=== PATIENT | female | born 1960 | race Caucasian/White ===

== ENCOUNTER → 2016-05-09 | Outpatient (CLI) | payer MEDICARE, MEDICAID ==
[~2016-05-09] MED LIST: ALBUTEROL0.09 MG/A2 IH; ANAPROX DS550 MG PO; ASACOL HD800 M1 PO; AZULFIDINE500 MG PO; CARDIZEM120 MG PO; CELEXA20 MG PO; CELEXA40 MG PO; CIPROFLOXACIN500 MG PO; CYMBALTA30 MG PO; FENOFIBRATE MI134 MG PO; FLAGYL500 MG PO; HYDROCODONE BIT1 T11 PO; IRON TABLETS325 MG PO; KLONOPIN WAFE0.25 MG PO; KLONOPIN0.5 MG PO; LAMICTAL200 MG PO; LISINOPRIL HCTZ1 TA1 PO; LORATADINE10 MG PO; MEDROL DOSEPAK4 MG PO; NORCO 325 MG-101 TAB PO; NORTRIPTYLINE H10 M1 PO; NORVASC5 MG PO; PRILOSEC40 MG PO; PROTONIX40 MG PO; PROVENTIL0.09 MG/A1 INH; ROBAXIN750 MG PO; SILVADENE,SSD C50 GM PO; TRAMADOL HCL50 MG PO; TYLENOL WITH CO1 TA1 PO; VICODIN 5/500 505 MG PO; VISTARIL25 M1 PO; VISTARIL25 MG PO; VISTARIL50 MG PO; VITAMIN D50000 I2 PO; WELLBUTRIN SR150 MG PO; WELLBUTRIN SR200 MG PO; ZANTAC 150150 MG PO
[2016-05-09 13:03] LABS: BILIRUBIN NEGATIVE (NEGATIVE); BLOOD NEGATIVE (NEGATIVE); CLARITY SL CLOUDY (CLEAR); COLOR YELLOW (YELLOW); GLUCOSE NEGATIVE (NEGATIVE); KETONE NEGATIVE (NEGATIVE); LEUKO ESTERASE TRACE (NEGATIVE); NITRITE NEGATIVE (NEGATIVE); PROTEIN NEGATIVE (NEGATIVE); SPECIFIC GRAVITY 1.015 (1.005-1.030)
[2016-05-09 13:04] LABS: URINE TP/CRE RATIO 0.1 (<0.21)
[2016-05-09 13:08] LABS: BASO # 0.1 10*3/uL (0.0-0.1); EOS # 0.6 10*3/uL (0.0-0.4); EOS % 6.1 % (1.0-4.0); HEMATOCRIT 41.1 % (37.0-47.0); HEMOGLOBIN 13.1 g/dl (12.0-16.0); LYMPH # 2.2 10*3/uL (1.3-4.4); LYMPH % 23.5 % (27.0-41.0); MEAN CELL VOLUME 85.3 fl (81.0-99.0); MEAN CORPUSCULAR HGB 27.2 pg (27.0-31.0); MEAN CORPUSCULAR HGB CONC 31.9 g/dl (33.0-37.0); MEAN PLATELET VOLUME 10.1 fl (9.6-12.3); MONO # 0.5 10*3/uL (0.1-1.0); MONO % 5.8 % (3.0-9.0); NEUT # 5.9 10*3/uL (2.3-7.9); NEUT % 63.4 % (47.0-73.0); PLATELET COUNT AUTOMATED 378 10*3/uL (130-400); RED BLOOD COUNT 4.82 10*6/uL (4.10-5.10); RED CELL DISTRI WIDTH 14.2 % (0-14.5); WHITE BLOOD COUNT 9.3 10*3/uL (4.8-10.8)
[2016-05-09 13:41] LABS: ALBUMIN 3.7 gm/dl (3.1-4.5); MAGNESIUM 2.1 mg/dL (1.5-2.1); PHOSPHOROUS 2.6 mg/dL (2.5-4.9); POTASSIUM 3.9 mmol/L (3.5-5.1)
[2016-05-09 13:56] LABS: PTH INTACT 68.6 pg/mL (14.0-72.0); VITAMIN D, 25-HYDROXY 15.7 ng/mL (30-100)
[2016-05-09 14:04] LABS: BACTERIA TRACE
[2016-05-09 14:05] LABS: URINE REFLEX COMMENT YES (NO)
== END | disposition home or self-care (01) ==
LOC: LAB 12:35
PROVIDERS: Internal Medicine Nephrology
DX: N18.3 Chronic kidney disease, stage 3 (moderate) (principal); N25.81 Secondary hyperparathyroidism of renal origin

== ENCOUNTER → 2016-05-20 | Outpatient (CLI) | payer MEDICARE, MEDICAID | LOC: RAD 12:20 | DX: M54.6 Pain in thoracic spine (principal); M54.9 Dorsalgia, unspecified; M25.78 Osteophyte, vertebrae ==

== ENCOUNTER → 2016-09-15 | Outpatient (CLI) | payer MEDICARE, MEDICAID ==
--- NOTE | ~2016-09-15 | EKG ---
[place], [place] ELECTROCARDIOGRAM REPORT NAME: BÁRBARA LEÓN UNIT #: [id number] ROOM: DOCTOR: HALEIGH VALDEZ MD BIRTHDATE: [birth year] DOS: 09/15/2016 TIME: 11:16:37. EKG normal sinus rhythm, normal axis, normal intervals with nonspecific ST-T changes. HALEIGH VALDEZ MD CM:EKGRPT:ELECTROCARDIOGRAM REPORT [id number] HALEIGH VALDEZ MD
[2016-09-15 11:29] LABS: BASO # 0.1 10*3/uL (0.0-0.1); BASO % 0.9 % (0.0-1.0); EOS # 0.3 10*3/uL (0.0-0.4); EOS % 3.8 % (1.0-4.0); HEMATOCRIT 39.9 % (37.0-47.0); LYMPH # 2.2 10*3/uL (1.3-4.4); LYMPH % 33.4 % (27.0-41.0); MEAN CELL VOLUME 87.9 fl (81.0-99.0); MEAN CORPUSCULAR HGB 28.6 pg (27.0-31.0); MEAN CORPUSCULAR HGB CONC 32.6 g/dl (33.0-37.0); MEAN PLATELET VOLUME 10.4 fl (9.6-12.3); MONO # 0.5 10*3/uL (0.1-1.0); MONO % 7.1 % (3.0-9.0); NEUT # 3.6 10*3/uL (2.3-7.9); NEUT % 54.5 % (47.0-73.0); PLATELET COUNT AUTOMATED 242 10*3/uL (130-400); RED BLOOD COUNT 4.54 10*6/uL (4.10-5.10); RED CELL DISTRI WIDTH 13.6 % (0-14.5); WHITE BLOOD COUNT 6.7 10*3/uL (4.8-10.8)
[2016-09-15 11:55] LABS: ALBUMIN 3.5 gm/dl (3.1-4.5); PHOSPHOROUS 2.2 mg/dL (2.5-4.9); POTASSIUM 3.7 mmol/L (3.5-5.1)
== END ==
LOC: LAB 10:59
PROVIDERS: Nurse Practitioner Family
DX: I12.9 Hypertensive chronic kidney disease with stage 1 through stage 4 chronic kidney disease, or unspecified chronic kidney disease (principal); N18.3 Chronic kidney disease, stage 3 (moderate); E55.9 Vitamin D deficiency, unspecified

== ENCOUNTER 2016-10-18 23:18 | Emergency (ER) | payer MEDICARE, MEDICAID ==
[~2016-10-18] VITALS: Ht 162.5 cm; Wt 89.8 kg
[2016-10-19] MEDS ORDERED: HYDROCODONE BIT1 T11 PO (00:45)
== END 2016-10-19 01:15 | disposition home or self-care (01) ==
LOC: ED 23:18
DX: S52.125A Nondisplaced fracture of head of left radius, initial encounter for closed fracture (principal); Z79.899 Other long term (current) drug therapy; W18.39XA Other fall on same level, initial encounter; Y93.89 Activity, other specified; Y92.89 Other specified places as the place of occurrence of the external cause; Y99.8 Other external cause status

== ENCOUNTER → 2016-10-21 | Outpatient (CLI) | payer MEDICARE, MEDICAID | END | disposition home or self-care (01) | LOC: RAD 17:18 | DX: R07.89 Other chest pain (principal); Z91.81 History of falling ==

== ENCOUNTER → 2017-03-13 | Day surgery (SDC) | payer MEDICARE, MEDICAID ==
[~2017-03-13] VITALS: Ht 162.5 cm; Wt 98.0 kg
[~2017-03-13] MED LIST changes: +CLONAZEPAM0.5 M2 PO; +COLACE 2-IN-11 EACH PO; +GOOD NEIGHBOR150 MG PO; +LISINOPRIL5 MG PO; +PROVENTIL HFA6.7 GM INH; +QUETIAPINE FUM200 M3 PO; +ROSUVASTATIN CA40 MG PO; +TOPIRAMATE25 M3 PO; +VIIBRYD20 M1 PO
[2017-03-13 07:16] VITALS: BP 131/79
[2017-03-13 08:18] VITALS: BP 97/63
[2017-03-13 08:33] VITALS: BP 113/65
[2017-03-13 08:48] VITALS: BP 104/64
== END | disposition home or self-care (01) ==
LOC: SDC 03:54
DX: K57.30 Diverticulosis of large intestine without perforation or abscess without bleeding (principal); K64.8 Other hemorrhoids; K21.9 Gastro-esophageal reflux disease without esophagitis; I10 Essential (primary) hypertension; F32.9 Major depressive disorder, single episode, unspecified; Z98.890 Other specified postprocedural states; Z82.49 Family history of ischemic heart disease and other diseases of the circulatory system; Z79.899 Other long term (current) drug therapy; E66.01 Morbid (severe) obesity due to excess calories; Z68.41 Body mass index [BMI] 40.0-44.9, adult

== ENCOUNTER → 2017-03-21 | Outpatient (CLI) | payer MEDICARE, MEDICAID ==
[2017-03-21 11:15] LABS: BASO # 0.1 10*3/uL (0.0-0.1); BASO % 0.9 % (0.0-1.0); EOS # 0.4 10*3/uL (0.0-0.4); EOS % 5.4 % (1.0-4.0); HEMATOCRIT 39.3 % (37.0-47.0); HEMOGLOBIN 12.5 g/dl (12.0-16.0); LYMPH # 2.3 10*3/uL (1.3-4.4); LYMPH % 33.3 % (27.0-41.0); MEAN CELL VOLUME 85.6 fl (81.0-99.0); MEAN CORPUSCULAR HGB 27.2 pg (27.0-31.0); MEAN CORPUSCULAR HGB CONC 31.8 g/dl (33.0-37.0); MEAN PLATELET VOLUME 10.6 fl (9.6-12.3); MONO # 0.5 10*3/uL (0.1-1.0); MONO % 7.6 % (3.0-9.0); NEUT # 3.6 10*3/uL (2.3-7.9); NEUT % 52.5 % (47.0-73.0); PLATELET COUNT AUTOMATED 275 10*3/uL (130-400); RED BLOOD COUNT 4.59 10*6/uL (4.10-5.10); RED CELL DISTRI WIDTH 13.6 % (0-14.5); WHITE BLOOD COUNT 6.8 10*3/uL (4.8-10.8)
[2017-03-21 11:35] LABS: ALBUMIN 3.3 gm/dl (3.1-4.5); ALKALINE PHOSPHATASE 87 U/L (45-117); BILIRUBIN, DIRECT < 0.1 mg/dL (0.0-0.2); FREE T4 0.78 ng/dl (0.76-1.46); SGOT/AST 19 IU/L (3-35); SGPT/ALT 22 U/L (12-78); TOTAL PROTEIN 7.5 gm/dL (6.4-8.2)
[2017-03-21 11:41] LABS: THYROID STIM HORMONE (HS) 0.705 uIU/ml (0.358-4.75)
[2017-03-22 07:12] LABS: THYROID PEROXIDASE (TPO) AB 16 IU/mL (0-34)
[2017-03-22 14:07] LABS: THYROGLOBULIN ANTIBODY <1.0 IU/mL (0.0-0.9)
== END | disposition home or self-care (01) ==
LOC: LAB 10:33
PROVIDERS: Internal Medicine
DX: R94.6 Abnormal results of thyroid function studies (principal)

== ENCOUNTER → 2017-03-29 | Outpatient (CLI) | payer MEDICARE, MEDICAID | END | disposition home or self-care (01) | LOC: MAMMO 03-10 15:30 → SDC 03-10 15:30 → MAMMO 13:45 | DX: Z12.31 Encounter for screening mammogram for malignant neoplasm of breast (principal) ==

== ENCOUNTER → 2017-04-18 | Day surgery (SDC) | payer MEDICARE, MEDICAID ==
[~2017-04-18] VITALS: Ht 162.5 cm
[~2017-04-18] MED LIST changes: +AMLODIPINE BESYL5 MG PO; +NEURONTIN100 MG PO; +OMEPRAZOLE40 MG PO
[2017-04-18 07:28] VITALS: BP 120/81
[2017-04-18 08:15] VITALS: BP 103/70
[2017-04-18 08:30] VITALS: BP 109/70
[2017-04-18 08:45] VITALS: BP 159/93
== END | disposition home or self-care (01) ==
LOC: SDC 04-14 08:00
DX: K29.70 Gastritis, unspecified, without bleeding (principal); K21.0 Gastro-esophageal reflux disease with esophagitis; I10 Essential (primary) hypertension; F32.9 Major depressive disorder, single episode, unspecified; Z98.51 Tubal ligation status; Z82.49 Family history of ischemic heart disease and other diseases of the circulatory system

== ENCOUNTER → 2017-05-30 | Outpatient (CLI) | payer MEDICARE, MEDICAID ==
--- NOTE | ~2017-05-30 | EKG ---
[place], [place] ELECTROCARDIOGRAM REPORT NAME: BÁRBARA LEÓN UNIT #: [id number] ROOM: DOCTOR: REGULO TEIXEIRA MD BIRTHDATE: [birth year] DOS: 05/30/2017 TIME: 1142 hours. FINDINGS: 1. Normal sinus rhythm at 85 beats per minute. 2. The tracing is normal. 3. No previous tracing is available for comparison. REGULO TEIXEIRA MD CM:EKGRPT:ELECTROCARDIOGRAM REPORT [id number] 1829 REGULO TEIXEIRA MD
== END | disposition home or self-care (01) ==
LOC: RAD 11:35
DX: R06.02 Shortness of breath (principal); R05 Cough; I10 Essential (primary) hypertension

== ENCOUNTER → 2017-09-07 | Outpatient (CLI) | payer MEDICARE, MEDICAID ==
[2017-09-07 13:55] LABS: BILIRUBIN NEGATIVE (NEGATIVE); BLOOD NEGATIVE (NEGATIVE); CLARITY CLEAR (CLEAR); COLOR YELLOW (YELLOW); GLUCOSE NEGATIVE (NEGATIVE); KETONE TRACE (NEGATIVE); LEUKO ESTERASE NEGATIVE (NEGATIVE); NITRITE NEGATIVE (NEGATIVE); SPECIFIC GRAVITY >= 1.030 (1.005-1.030)
[2017-09-07 14:03] LABS: BASO # 0.1 10*3/uL (0.0-0.1); BASO % 1.1 % (0.0-1.0); EOS # 1.2 10*3/uL (0.0-0.4); EOS % 16.2 % (1.0-4.0); HEMOGLOBIN 13.5 g/dl (12.0-16.0); LYMPH # 1.8 10*3/uL (1.3-4.4); LYMPH % 24.9 % (27.0-41.0); MEAN CELL VOLUME 86.4 fl (81.0-99.0); MEAN CORPUSCULAR HGB 27.8 pg (27.0-31.0); MEAN CORPUSCULAR HGB CONC 32.1 g/dl (33.0-37.0); MEAN PLATELET VOLUME 10.3 fl (9.6-12.3); MONO # 0.6 10*3/uL (0.1-1.0); MONO % 7.8 % (3.0-9.0); NEUT # 3.6 10*3/uL (2.3-7.9); NEUT % 49.9 % (47.0-73.0); PLATELET COUNT AUTOMATED 291 10*3/uL (130-400); RED BLOOD COUNT 4.86 10*6/uL (4.10-5.10); WHITE BLOOD COUNT 7.3 10*3/uL (4.8-10.8)
[2017-09-07 14:10] LABS: BACTERIA 1+; MUCOUS 2+
[2017-09-07 14:13] LABS: EPITHELIAL CELLS 21-30
[2017-09-07 14:15] LABS: ALBUMIN 3.6 gm/dl (3.1-4.5); CREATININE 1.35 mg/dL (0.55-1.02); PHOSPHOROUS 2.7 mg/dL (2.5-4.9); POTASSIUM 3.5 mmol/L (3.5-5.1)
[2017-09-07 14:29] LABS: PTH INTACT 62.4 pg/mL (14.0-72.0); VITAMIN D, 25-HYDROXY 20.3 ng/mL (30-100)
== END | disposition home or self-care (01) ==
LOC: LAB 13:19
PROVIDERS: Internal Medicine Nephrology
DX: N25.81 Secondary hyperparathyroidism of renal origin (principal); N18.3 Chronic kidney disease, stage 3 (moderate); E55.9 Vitamin D deficiency, unspecified

== ENCOUNTER → 2017-10-09 | Day surgery (SDC) | payer MEDICARE, MEDICAID ==
[~2017-10-09] VITALS: Ht 167.6 cm; Wt 101.2 kg
[2017-10-09 08:00] VITALS: BP 120/52
[2017-10-09 10:55] VITALS: BP 130/66
[2017-10-09 11:10] VITALS: BP 127/67
[2017-10-09 11:20] VITALS: BP 126/65
== END | disposition home or self-care (01) ==
LOC: SDC 10-03 11:00
DX: K52.9 Noninfective gastroenteritis and colitis, unspecified (principal); K62.89 Other specified diseases of anus and rectum; K57.30 Diverticulosis of large intestine without perforation or abscess without bleeding; K21.9 Gastro-esophageal reflux disease without esophagitis; I10 Essential (primary) hypertension; E11.9 Type 2 diabetes mellitus without complications; F32.9 Major depressive disorder, single episode, unspecified; F41.9 Anxiety disorder, unspecified; D64.9 Anemia, unspecified; J45.909 Unspecified asthma, uncomplicated; Z90.49 Acquired absence of other specified parts of digestive tract; Z98.51 Tubal ligation status; Z98.890 Other specified postprocedural states; Z82.49 Family history of ischemic heart disease and other diseases of the circulatory system; Z79.899 Other long term (current) drug therapy

== ENCOUNTER → 2017-11-15 | Outpatient (CLI) | payer MEDICARE, MEDICAID | END | disposition home or self-care (01) | LOC: RAD 13:15 | DX: R06.2 Wheezing (principal); R05 Cough ==

== ENCOUNTER → 2018-01-11 | Outpatient (CLI) | payer MEDICARE, MEDICAID | END | disposition home or self-care (01) | LOC: LAB 09:34 | DX: R53.83 Other fatigue (principal); N18.9 Chronic kidney disease, unspecified ==

== ENCOUNTER → 2018-03-27 | Day surgery (SDC) | payer MEDICARE, MEDICAID ==
[~2018-03-27] VITALS: Ht 167.6 cm; Wt 99.8 kg
[2018-03-27 07:28] VITALS: BP 142/100
[2018-03-27 08:50] VITALS: BP 106/64
[2018-03-27 09:05] VITALS: BP 104/68
[2018-03-27 09:20] VITALS: BP 114/66
== END | disposition home or self-care (01) ==
LOC: SDC 03-23 12:30
DX: K51.90 Ulcerative colitis, unspecified, without complications (principal); K57.30 Diverticulosis of large intestine without perforation or abscess without bleeding; K64.8 Other hemorrhoids; I10 Essential (primary) hypertension; J45.909 Unspecified asthma, uncomplicated; K21.9 Gastro-esophageal reflux disease without esophagitis; F32.9 Major depressive disorder, single episode, unspecified; Z98.890 Other specified postprocedural states; Z79.899 Other long term (current) drug therapy

== ENCOUNTER → 2018-04-03 | Outpatient (CLI) | payer MEDICARE, MEDICAID | END | disposition home or self-care (01) | LOC: MAMMO 16:11 | DX: Z12.31 Encounter for screening mammogram for malignant neoplasm of breast (principal) ==

== ENCOUNTER → 2018-04-05 | Outpatient (CLI) | payer MEDICARE, MEDICAID ==
[2018-04-05 11:33] LABS: BILIRUBIN NEGATIVE (NEGATIVE); BLOOD NEGATIVE (NEGATIVE); CLARITY SL CLOUDY (CLEAR); COLOR YELLOW (YELLOW); GLUCOSE NEGATIVE (NEGATIVE); KETONE NEGATIVE (NEGATIVE); LEUKO ESTERASE TRACE (NEGATIVE); NITRITE NEGATIVE (NEGATIVE); SPECIFIC GRAVITY 1.015 (1.005-1.030)
[2018-04-05 11:52] LABS: BACTERIA 3+; EPITHELIAL CELLS 25-30
[2018-04-05 11:59] LABS: BASO # 0.1 10*3/uL (0.0-0.1); EOS # 0.3 10*3/uL (0.0-0.4); EOS % 3.8 % (1.0-4.0); HEMATOCRIT 42.4 % (37.0-47.0); HEMOGLOBIN 13.5 g/dl (12.0-16.0); LYMPH # 2.1 10*3/uL (1.3-4.4); LYMPH % 26.7 % (27.0-41.0); MEAN CELL VOLUME 86.9 fl (81.0-99.0); MEAN CORPUSCULAR HGB 27.7 pg (27.0-31.0); MEAN CORPUSCULAR HGB CONC 31.8 g/dl (33.0-37.0); MONO # 0.5 10*3/uL (0.1-1.0); MONO % 6.9 % (3.0-9.0); NEUT # 4.8 10*3/uL (2.3-7.9); NEUT % 61.3 % (47.0-73.0); PLATELET COUNT AUTOMATED 308 10*3/uL (130-400); RED BLOOD COUNT 4.88 10*6/uL (4.10-5.10); RED CELL DISTRI WIDTH 14.6 % (0-14.5); WHITE BLOOD COUNT 7.9 10*3/uL (4.8-10.8)
[2018-04-05 12:01] LABS: ALBUMIN 3.5 gm/dl (3.1-4.5); CREATININE 1.26 mg/dL (0.55-1.02); PHOSPHOROUS 3.2 mg/dL (2.5-4.9); POTASSIUM 3.9 mmol/L (3.5-5.1)
[2018-04-05 12:30] LABS: PTH INTACT 69.5 pg/mL (18.5-88.0); VITAMIN D, 25-HYDROXY 29.6 ng/mL (30-100)
== END | disposition home or self-care (01) ==
LOC: LAB 11:07
PROVIDERS: Internal Medicine Nephrology
DX: Z12.31 Encounter for screening mammogram for malignant neoplasm of breast (principal); E55.9 Vitamin D deficiency, unspecified; N18.3 Chronic kidney disease, stage 3 (moderate); N25.81 Secondary hyperparathyroidism of renal origin; Z79.899 Other long term (current) drug therapy

== ENCOUNTER → 2018-08-13 | Outpatient (CLI) | payer MEDICARE ==
[~2018-08-13] MED LIST changes: +CEPHALEXIN500 M1 PO; +Motrin,Rufen800 MG PO; +SEPTDS PO
== END | disposition home or self-care (01) ==
LOC: CT 14:00
DX: K57.90 Diverticulosis of intestine, part unspecified, without perforation or abscess without bleeding (principal); Z90.49 Acquired absence of other specified parts of digestive tract; K76.0 Fatty (change of) liver, not elsewhere classified

== ENCOUNTER → 2018-10-02 | Outpatient (CLI) | payer MEDICARE ==
[2018-10-02 09:52] LABS: BASO # 0.1 10*3/uL (0.0-0.1); EOS # 0.6 10*3/uL (0.0-0.4); HEMATOCRIT 41.2 % (37.0-47.0); HEMOGLOBIN 13.5 g/dl (12.0-16.0); LYMPH # 2.3 10*3/uL (1.3-4.4); LYMPH % 28.2 % (27.0-41.0); MEAN CORPUSCULAR HGB 29.5 pg (27.0-31.0); MEAN CORPUSCULAR HGB CONC 32.8 g/dl (33.0-37.0); MEAN PLATELET VOLUME 10.1 fl (9.6-12.3); MONO # 0.7 10*3/uL (0.1-1.0); MONO % 8.5 % (3.0-9.0); NEUT # 4.4 10*3/uL (2.3-7.9); NEUT % 55.2 % (47.0-73.0); PLATELET COUNT AUTOMATED 327 10*3/uL (130-400); RED BLOOD COUNT 4.58 10*6/uL (4.10-5.10); RED CELL DISTRI WIDTH 13.4 % (0-14.5)
[2018-10-02 09:55] LABS: BILIRUBIN NEGATIVE (NEGATIVE); BLOOD NEGATIVE (NEGATIVE); CLARITY CLOUDY (CLEAR); COLOR YELLOW (YELLOW); GLUCOSE NEGATIVE (NEGATIVE); KETONE NEGATIVE (NEGATIVE); LEUKO ESTERASE NEGATIVE (NEGATIVE); NITRITE NEGATIVE (NEGATIVE); SPECIFIC GRAVITY >= 1.030 (1.005-1.030); UROBILINOGEN 0.2 E.U./dl (0.2-1.0)
[2018-10-02 10:33] LABS: POTASSIUM 4.3 mmol/L (3.5-5.1)
[2018-10-02 10:38] LABS: PTH INTACT 28.6 pg/mL (18.5-88.0); VITAMIN D, 25-HYDROXY 38.7 ng/mL (30-100)
[2018-10-02 11:18] LABS: ALBUMIN 3.6 gm/dl (3.1-4.5); CREATININE 1.43 mg/dL (0.55-1.02); PHOSPHOROUS 3.6 mg/dL (2.5-4.9)
[2018-10-02 11:21] LABS: BACTERIA 1+; MUCOUS 1+; RBC 0-2 rbc/hpf (0-2); WBC 0-2 wbc/hpf (0-5)
[2018-10-02 11:22] LABS: CALCIUM OXALATE CRYSTALS 3+; URIC ACID CRYSTALS 4+
== END | disposition home or self-care (01) ==
LOC: LAB 09:23
PROVIDERS: Internal Medicine Nephrology
DX: N18.3 Chronic kidney disease, stage 3 (moderate) (principal); N25.81 Secondary hyperparathyroidism of renal origin; E55.9 Vitamin D deficiency, unspecified; Z79.899 Other long term (current) drug therapy

== ENCOUNTER 2018-11-14 11:09 | Emergency (ER) | payer MEDICARE ==
[~2018-11-14] VITALS: Wt 97.1 kg
--- NOTE | ~2018-11-14 | EKG ---
[place], [place] ELECTROCARDIOGRAM REPORT NAME: BÁRBARA LEÓN UNIT #: [id number] ROOM: DOCTOR: KATIE DRAFT REPORT BIRTHDATE: [birth year] [facility] Test Date: 2018-11-14 Test Time: 11:13:17 Pat Name: BÁRBARA LEÓN Department: Room: Gender: F [employer]: : 1960 Requested By: PERLA LUKE Order Number: [id number] Reading MD: Tuan Tan Measurements Intervals [place] Rate: 67 P: 44 WA: 155 QRS: 36 QRSD: 91 T: 13 QT: 411 QTc: 434 Interpretive Statements Sinus rhythm Low voltage, precordial leads No previous ECG available for comparison Electronically Signed On 11-15-2018 8:38:07 PDT by Tuan Tan CM:EKGRPT:ELECTROCARDIOGRAM REPORT [id number] PERLA WILSON DRAFT REPORT PERLA LUKE M.D.
[~2018-11-14 11:09] MED LIST changes: -Motrin,Rufen800 MG PO
[2018-11-14 11:38] LABS: BASO # 0.1 10*3/uL (0.0-0.1); EOS # 0.4 10*3/uL (0.0-0.4); EOS % 4.4 % (1.0-4.0); HEMATOCRIT 42.7 % (37.0-47.0); HEMOGLOBIN 13.9 g/dl (12.0-16.0); LYMPH # 1.8 10*3/uL (1.3-4.4); LYMPH % 20.2 % (27.0-41.0); MEAN CELL VOLUME 90.3 fl (81.0-99.0); MEAN CORPUSCULAR HGB 29.4 pg (27.0-31.0); MEAN CORPUSCULAR HGB CONC 32.6 g/dl (33.0-37.0); MEAN PLATELET VOLUME 10.4 fl (9.6-12.3); MONO # 0.6 10*3/uL (0.1-1.0); NEUT # 6.1 10*3/uL (2.3-7.9); NEUT % 67.2 % (47.0-73.0); PLATELET COUNT AUTOMATED 301 10*3/uL (130-400); RED BLOOD COUNT 4.73 10*6/uL (4.10-5.10); RED CELL DISTRI WIDTH 13.2 % (0-14.5); WHITE BLOOD COUNT 9.1 10*3/uL (4.8-10.8)
[2018-11-14 11:49] LABS: ACT PARTIAL THROMBO TIME 25.8 SECONDS (20.0-32.1); INTERNATIONAL NORM RATIO 0.9 (2.0-3.5)
[2018-11-14 11:58] LABS: ALBUMIN 3.6 gm/dl (3.1-4.5); ALKALINE PHOSPHATASE 79 U/L (45-117); BUN 19 mg/dl (7-24); CHLORIDE 109 mmol/L (98-107); CREATININE 1.28 mg/dL (0.55-1.02); SGOT/AST 20 IU/L (3-35); SGPT/ALT 25 U/L (12-78); SODIUM 141 mmol/L (136-145); TOTAL PROTEIN 8.2 gm/dL (6.4-8.2)
[2018-11-14 12:02] LABS: TROPONIN I < 0.015 ng/ml (<0.045)
[2018-11-14] MEDS ORDERED: Motrin,Rufen800 MG PO (12:36)
== END 2018-11-14 12:39 | disposition home or self-care (01) ==
LOC: ED 11:09
PROVIDERS: Emergency Medicine
DX: R09.1 Pleurisy (principal); K21.9 Gastro-esophageal reflux disease without esophagitis; I10 Essential (primary) hypertension; Z79.899 Other long term (current) drug therapy; Z79.2 Long term (current) use of antibiotics; Z90.49 Acquired absence of other specified parts of digestive tract

== ENCOUNTER → 2019-01-04 | Outpatient (CLI) | payer MEDICARE ==
[~2019-01-04] MED LIST changes: +Motrin,Rufen800 MG PO
== END | disposition home or self-care (01) ==
LOC: D 09:59
DX: E78.5 Hyperlipidemia, unspecified (principal)

== ENCOUNTER → 2019-04-17 | Outpatient (CLI) | payer MEDICARE ==
[2019-04-17 08:15] LABS: BILIRUBIN NEGATIVE (NEGATIVE); BLOOD NEGATIVE (NEGATIVE); CLARITY CLOUDY (CLEAR); COLOR YELLOW (YELLOW); GLUCOSE NEGATIVE (NEGATIVE); KETONE NEGATIVE (NEGATIVE); LEUKO ESTERASE NEGATIVE (NEGATIVE); NITRITE NEGATIVE (NEGATIVE); SPECIFIC GRAVITY >= 1.030 (1.005-1.030); UROBILINOGEN 0.2 E.U./dl (0.2-1.0)
[2019-04-17 08:21] LABS: BASO # 0.1 10*3/uL (0.0-0.1); BASO % 1.1 % (0.0-1.0); EOS # 0.4 10*3/uL (0.0-0.4); HEMATOCRIT 40.8 % (37.0-47.0); HEMOGLOBIN 13.1 g/dl (12.0-16.0); LYMPH # 2.7 10*3/uL (1.3-4.4); LYMPH % 36.2 % (27.0-41.0); MEAN CELL VOLUME 90.9 fl (81.0-99.0); MEAN CORPUSCULAR HGB 29.2 pg (27.0-31.0); MEAN CORPUSCULAR HGB CONC 32.1 g/dl (33.0-37.0); MEAN PLATELET VOLUME 10.6 fl (9.6-12.3); MONO # 0.7 10*3/uL (0.1-1.0); MONO % 9.1 % (3.0-9.0); NEUT # 3.6 10*3/uL (2.3-7.9); NEUT % 48.3 % (47.0-73.0); PLATELET COUNT AUTOMATED 298 10*3/uL (130-400); RED BLOOD COUNT 4.49 10*6/uL (4.10-5.10); RED CELL DISTRI WIDTH 14.3 % (0-14.5); WHITE BLOOD COUNT 7.4 10*3/uL (4.8-10.8)
[2019-04-17 08:44] LABS: ALBUMIN 3.4 gm/dl (3.1-4.5); CREATININE 1.29 mg/dL (0.55-1.02); PHOSPHOROUS 3.5 mg/dL (2.5-4.9); POTASSIUM 3.8 mmol/L (3.5-5.1)
[2019-04-17 09:41] LABS: PTH INTACT 79.8 pg/mL (18.5-88.0); VITAMIN D, 25-HYDROXY 29.6 ng/mL (30-100)
[2019-04-17 09:47] LABS: EPITHELIAL CELLS 35-40
[2019-04-17 09:48] LABS: BACTERIA 2+; MUCOUS 2+
== END | disposition home or self-care (01) ==
LOC: LAB 07:21
PROVIDERS: Internal Medicine Nephrology
DX: N25.81 Secondary hyperparathyroidism of renal origin (principal); N18.3 Chronic kidney disease, stage 3 (moderate); E55.9 Vitamin D deficiency, unspecified; Z79.899 Other long term (current) drug therapy

== ENCOUNTER → 2019-05-03 | Outpatient (CLI) | payer MEDICARE | END | disposition home or self-care (01) | LOC: RAD 08:05 | DX: M47.814 Spondylosis without myelopathy or radiculopathy, thoracic region (principal); M47.817 Spondylosis without myelopathy or radiculopathy, lumbosacral region ==

== ENCOUNTER → 2019-05-31 | Outpatient (CLI) | payer MEDICARE | END | disposition home or self-care (01) | LOC: MRI 05-30 09:00 | DX: M47.814 Spondylosis without myelopathy or radiculopathy, thoracic region (principal); M47.816 Spondylosis without myelopathy or radiculopathy, lumbar region; M54.6 Pain in thoracic spine; Z51.81 Encounter for therapeutic drug level monitoring; G62.9 Polyneuropathy, unspecified; E66.9 Obesity, unspecified ==

== ENCOUNTER 2019-08-27 11:52 | Emergency (ER) | payer MEDICARE ==
[~2019-08-27] VITALS: Ht 162.5 cm; Wt 99.8 kg
[2019-08-27 12:37] LABS: BILIRUBIN NEGATIVE (NEGATIVE); BLOOD NEGATIVE (NEGATIVE); CLARITY CLEAR (CLEAR); COLOR STRAW (YELLOW); GLUCOSE NEGATIVE (NEGATIVE); KETONE NEGATIVE (NEGATIVE); NITRITE NEGATIVE (NEGATIVE); SPECIFIC GRAVITY 1.005 (1.005-1.030); UROBILINOGEN 0.2 E.U./dl (0.2-1.0)
[2019-08-27 12:38] LABS: LEUKO ESTERASE NEGATIVE (NEGATIVE)
[2019-08-27 12:54] LABS: BACTERIA TRACE
[2019-08-27] MEDS ORDERED: NYSTATIN CREAM15 GM T (14:18)
== END 2019-08-27 14:22 | disposition home or self-care (01) ==
LOC: ED 11:52
PROVIDERS: Physician Assistant
DX: S22.32XA Fracture of one rib, left side, initial encounter for closed fracture (principal); R51 Headache; K21.9 Gastro-esophageal reflux disease without esophagitis; I10 Essential (primary) hypertension; J45.909 Unspecified asthma, uncomplicated; F32.9 Major depressive disorder, single episode, unspecified; Z79.899 Other long term (current) drug therapy; W19.XXXA Unspecified fall, initial encounter; Y93.89 Activity, other specified; Y92.89 Other specified places as the place of occurrence of the external cause; Y99.8 Other external cause status

== ENCOUNTER 2019-08-30 20:33 | Emergency (ER) | payer MEDICARE ==
[~2019-08-30] VITALS: Ht 167.6 cm; Wt 102.1 kg
[~2019-08-30 20:33] MED LIST changes: +NYSTATIN CREAM15 GM T
[2019-08-30] MEDS ORDERED: NORCO 5-325 TA1 EACH PO (21:41)
== END 2019-08-30 21:47 | disposition home or self-care (01) ==
LOC: ED 20:33
DX: S22.39XA Fracture of one rib, unspecified side, initial encounter for closed fracture (principal); K12.1 Other forms of stomatitis; Z79.899 Other long term (current) drug therapy; X58.XXXA Exposure to other specified factors, initial encounter; Y93.89 Activity, other specified; Y92.89 Other specified places as the place of occurrence of the external cause; Y99.8 Other external cause status

== ENCOUNTER 2019-10-01 17:07 | Emergency (ER) | payer OTHER ==
[~2019-10-01] VITALS: Ht 162.5 cm; Wt 99.8 kg
[~2019-10-01 17:07] MED LIST changes: +NORCO 5-325 TA1 EACH PO
[2019-10-01 18:30] LABS: BASO # 0.1 10*3/uL (0.0-0.1); BASO % 0.8 % (0.0-1.0); EOS # 0.3 10*3/uL (0.0-0.4); EOS % 3.4 % (1.0-4.0); HEMATOCRIT 39.7 % (37.0-47.0); LYMPH # 2.2 10*3/uL (1.3-4.4); MEAN CELL VOLUME 86.7 fl (81.0-99.0); MEAN CORPUSCULAR HGB 27.9 pg (27.0-31.0); MEAN CORPUSCULAR HGB CONC 32.2 g/dl (33.0-37.0); MEAN PLATELET VOLUME 10.5 fl (9.6-12.3); MONO # 0.7 10*3/uL (0.1-1.0); MONO % 6.9 % (3.0-9.0); NEUT # 6.2 10*3/uL (2.3-7.9); NEUT % 65.7 % (47.0-73.0); PLATELET COUNT AUTOMATED 333 10*3/uL (130-400); RED BLOOD COUNT 4.58 10*6/uL (4.10-5.10); RED CELL DISTRI WIDTH 13.3 % (0-14.5); WHITE BLOOD COUNT 9.4 10*3/uL (4.8-10.8)
[2019-10-01 18:44] LABS: ACT PARTIAL THROMBO TIME 25.4 SECONDS (20.0-32.1); ALBUMIN 3.1 gm/dl (3.1-4.5); ALKALINE PHOSPHATASE 93 U/L (45-117); BUN 19 mg/dl (7-24); CHLORIDE 110 mmol/L (98-107); CREATININE 1.39 mg/dL (0.55-1.02); LIPASE 158 U/L (73-393); POTASSIUM 4.1 mmol/L (3.5-5.1); SGOT/AST 24 IU/L (3-35); SGPT/ALT 28 U/L (12-78); SODIUM 140 mmol/L (136-145); TOTAL PROTEIN 8.2 gm/dL (6.4-8.2)
[2019-10-01 18:55] LABS: TROPONIN I < 0.015 ng/ml (<0.045)
[2019-10-01 19:56] LABS: BACTERIA TRACE; BILIRUBIN NEGATIVE (NEGATIVE); BLOOD NEGATIVE (NEGATIVE); CLARITY CLEAR (CLEAR); COLOR YELLOW (YELLOW); EPITHELIAL CELLS 16-20; GLUCOSE NEGATIVE (NEGATIVE); KETONE NEGATIVE (NEGATIVE); LEUKO ESTERASE NEGATIVE (NEGATIVE); NITRITE NEGATIVE (NEGATIVE); PH 7.5 (5.0-9.0); RBC 0-2 rbc/hpf (0-2); UROBILINOGEN 0.2 E.U./dl (0.2-1.0); WBC 0-2 wbc/hpf (0-5)
[2019-10-01] MEDS ORDERED: Kenalog 0.5% Cr15 GM T (20:54)
== END 2019-10-01 21:12 | disposition home or self-care (01) ==
LOC: ED 17:07
PROVIDERS: Nurse Practitioner Family
DX: E86.0 Dehydration (principal); R21 Rash and other nonspecific skin eruption; K21.9 Gastro-esophageal reflux disease without esophagitis; I10 Essential (primary) hypertension; J45.909 Unspecified asthma, uncomplicated; F32.9 Major depressive disorder, single episode, unspecified; Z79.899 Other long term (current) drug therapy

== ENCOUNTER → 2019-10-22 | Outpatient (CLI) | payer OTHER ==
[~2019-10-22] MED LIST changes: +Kenalog 0.5% Cr15 GM T
[2019-10-22 09:20] LABS: ALBUMIN 2.9 gm/dl (3.1-4.5); BILIRUBIN, DIRECT < 0.1 mg/dL (0.0-0.2); SGOT/AST 18 IU/L (3-35); SGPT/ALT 24 U/L (12-78); TOTAL PROTEIN 7.6 gm/dL (6.4-8.2)
[2019-10-22 09:21] LABS: ALKALINE PHOSPHATASE 115 U/L (45-117)
== END | disposition home or self-care (01) ==
LOC: LAB 08:28
PROVIDERS: Internal Medicine Gastroenterology
DX: K76.0 Fatty (change of) liver, not elsewhere classified (principal)

== ENCOUNTER → 2020-05-08 | Outpatient (CLI) | payer OTHER ==
[2020-05-08 11:24] LABS: BASO % 0.8 % (0.0-1.0); EOS # 0.1 10*3/uL (0.0-0.4); EOS % 1.5 % (1.0-4.0); HEMATOCRIT 40.5 % (37.0-47.0); LYMPH # 1.8 10*3/uL (1.3-4.4); LYMPH % 33.5 % (27.0-41.0); MEAN CELL VOLUME 86.4 fl (81.0-99.0); MEAN CORPUSCULAR HGB 26.7 pg (27.0-31.0); MEAN CORPUSCULAR HGB CONC 30.9 g/dl (33.0-37.0); MEAN PLATELET VOLUME 10.6 fl (9.6-12.3); MONO # 0.6 10*3/uL (0.1-1.0); NEUT # 2.7 10*3/uL (2.3-7.9); NEUT % 51.8 % (47.0-73.0); PLATELET COUNT AUTOMATED 289 10*3/uL (130-400); RED BLOOD COUNT 4.69 10*6/uL (4.10-5.10); RED CELL DISTRI WIDTH 13.8 % (0-14.5); WHITE BLOOD COUNT 5.3 10*3/uL (4.8-10.8)
[2020-05-08 11:50] LABS: ALBUMIN 3.1 gm/dl (3.1-4.5); CREATININE 1.3 mg/dL (0.55-1.02); POTASSIUM 3.6 mmol/L (3.5-5.1)
[2020-05-08 12:52] LABS: PTH INTACT 43.6 pg/mL (18.5-88.0)
[2020-05-08 12:53] LABS: VITAMIN D, 25-HYDROXY 34.7 ng/mL (30-100)
[2020-05-08 13:41] LABS: BILIRUBIN Negative (Negative); BLOOD Negative (Negative); CLARITY Clear (Clear); COLOR Yellow (Yellow); GLUCOSE Negative (Negative); KETONE Negative (Negative); LEUKO ESTERASE Negative (Negative); NITRITE Negative (Negative); PH 5.5 (4.5-8.0); SPECIFIC GRAVITY 1.025 (1.001-1.030); UROBILINOGEN 0.2 E.U./dl (0.0-1.0)
[2020-05-08 13:52] LABS: EPITHELIAL CELLS 0-2; MUCOUS TRACE; RBC 0-2 rbc/hpf (0-2)
== END | disposition home or self-care (01) ==
LOC: LAB 10:42
PROVIDERS: ATTEND Internal Medicine Nephrology
DX: N18.30 Chronic kidney disease, stage 3 unspecified (principal); N25.81 Secondary hyperparathyroidism of renal origin; E55.9 Vitamin D deficiency, unspecified; Z79.899 Other long term (current) drug therapy

== ENCOUNTER 2020-10-24 07:16 | Emergency (ER) | payer OTHER ==
[~2020-10-24] VITALS: Ht 167.6 cm; Wt 102.5 kg
[2020-10-24 08:00] LABS: BASO # 0.1 10*3/uL (0.0-0.1); BASO % 0.6 % (0.0-1.0); EOS # 0.4 10*3/uL (0.0-0.4); EOS % 4.8 % (1.0-4.0); HEMATOCRIT 40.5 % (37.0-47.0); LYMPH % 24.5 % (27.0-41.0); MEAN CELL VOLUME 84.7 fl (81.0-99.0); MEAN CORPUSCULAR HGB 27.2 pg (27.0-31.0); MEAN CORPUSCULAR HGB CONC 32.1 g/dl (33.0-37.0); MEAN PLATELET VOLUME 10.1 fl (9.6-12.3); MONO # 0.6 10*3/uL (0.1-1.0); MONO % 6.7 % (3.0-9.0); NEUT # 5.2 10*3/uL (2.3-7.9); NEUT % 63.2 % (47.0-73.0); PLATELET COUNT AUTOMATED 322 10*3/uL (130-400); RED BLOOD COUNT 4.78 10*6/uL (4.10-5.10); RED CELL DISTRI WIDTH 13.5 % (0-14.5); WHITE BLOOD COUNT 8.3 10*3/uL (4.8-10.8)
[2020-10-24 08:13] LABS: ALBUMIN 3.1 gm/dl (3.1-4.5); CREATININE 1.17 mg/dL (0.55-1.02); POTASSIUM 3.6 mmol/L (3.5-5.1); TOTAL PROTEIN 7.9 gm/dL (6.4-8.2)
[2020-10-24] MEDS ORDERED: AMOXICILLIN875 MG PO (10:12)
[2020-10-24] MEDS ORDERED: SEPTDS PO (10:12)
[2020-10-24] MEDS ORDERED: TYLENOL325 M1 PO (10:12)
== END 2020-10-24 10:45 | disposition home or self-care (01) ==
LOC: ED 07:16
PROVIDERS: Emergency Medicine
DX: L03.213 Periorbital cellulitis (principal); K21.9 Gastro-esophageal reflux disease without esophagitis; Z88.8 Allergy status to other drugs, medicaments and biological substances; Z79.899 Other long term (current) drug therapy; Z98.890 Other specified postprocedural states

== ENCOUNTER → 2020-11-02 | Outpatient (CLI) | payer OTHER ==
[~2020-11-02] MED LIST changes: +AMOXICILLIN875 MG PO; +TYLENOL325 M1 PO
== END | disposition home or self-care (01) ==
LOC: MAMMO 12:30
PROVIDERS: ATTEND Nurse Practitioner Family
DX: Z12.31 Encounter for screening mammogram for malignant neoplasm of breast (principal); N64.89 Other specified disorders of breast

== ENCOUNTER 2020-12-21 16:41 | Emergency (ER) | payer OTHER ==
[~2020-12-21] VITALS: Ht 167.6 cm; Wt 100.7 kg
[2020-12-21 20:46] LABS: BASO # 0.1 10*3/uL (0.0-0.1); BASO % 0.7 % (0.0-1.0); EOS # 0.4 10*3/uL (0.0-0.4); HEMATOCRIT 41.8 % (37.0-47.0); LYMPH % 23.1 % (27.0-41.0); MEAN CELL VOLUME 86.4 fl (81.0-99.0); MEAN CORPUSCULAR HGB 27.7 pg (27.0-31.0); MEAN CORPUSCULAR HGB CONC 32.1 g/dl (33.0-37.0); MEAN PLATELET VOLUME 10.5 fl (9.6-12.3); MONO # 0.7 10*3/uL (0.1-1.0); MONO % 7.7 % (3.0-9.0); NEUT # 5.6 10*3/uL (2.3-7.9); NEUT % 63.4 % (47.0-73.0); PLATELET COUNT AUTOMATED 360 10*3/uL (130-400); RED BLOOD COUNT 4.84 10*6/uL (4.10-5.10); RED CELL DISTRI WIDTH 13.4 % (0-14.5); WHITE BLOOD COUNT 8.8 10*3/uL (4.8-10.8)
[2020-12-21 21:01] LABS: ALBUMIN 3.1 gm/dl (3.1-4.5); CREATININE 1.17 mg/dL (0.55-1.02); POTASSIUM 3.6 mmol/L (3.5-5.1); TOTAL PROTEIN 8.2 gm/dL (6.4-8.2)
[2020-12-21] MEDS ORDERED: SEPTDS PO (23:55)
[2020-12-21] MEDS ORDERED: AMOXICILLIN875 MG PO (23:55)
== END 2020-12-22 00:05 | disposition home or self-care (01) ==
LOC: ED 16:41
PROVIDERS: Physician Assistant
DX: L03.213 Periorbital cellulitis (principal); I10 Essential (primary) hypertension; Z88.6 Allergy status to analgesic agent; Z79.899 Other long term (current) drug therapy; Z79.2 Long term (current) use of antibiotics; Z96.651 Presence of right artificial knee joint; Z98.51 Tubal ligation status; Z98.890 Other specified postprocedural states

== ENCOUNTER → 2021-01-18 | Outpatient (CLI) | payer OTHER | END | disposition home or self-care (01) | LOC: LAB 12:50 | PROVIDERS: ATTEND Internal Medicine Gastroenterology | DX: K50.10 Crohn's disease of large intestine without complications (principal) ==

== ENCOUNTER → 2021-03-05 | Outpatient (CLI) | payer OTHER | END | disposition home or self-care (01) | LOC: CT 00:49 | PROVIDERS: ATTEND Physician Assistant | DX: K76.0 Fatty (change of) liver, not elsewhere classified (principal) ==

== ENCOUNTER → 2021-03-18 | Outpatient (CLI) | payer OTHER | END | disposition home or self-care (01) | LOC: US 11:51 | PROVIDERS: ATTEND Student in an Organized Health Care Education/Training Program | DX: M17.12 Unilateral primary osteoarthritis, left knee (principal); R25.2 Cramp and spasm; R60.0 Localized edema ==

== ENCOUNTER → 2021-09-24 | Outpatient (CLI) | payer OTHER | END | disposition home or self-care (01) | LOC: US 09:36 | PROVIDERS: ATTEND Internal Medicine Gastroenterology | DX: R16.0 Hepatomegaly, not elsewhere classified (principal); K76.0 Fatty (change of) liver, not elsewhere classified ==

== ENCOUNTER → 2021-12-22 | Outpatient (CLI) | payer OTHER ==
[2021-12-22 15:03] LABS: ALKALINE PHOSPHATASE 84 U/L (45-117); SGOT/AST 35 IU/L (3-35); SGPT/ALT 31 U/L (12-78); TOTAL PROTEIN 7.8 gm/dL (6.4-8.2)
== END ==
LOC: LAB 14:15
PROVIDERS: ATTEND Internal Medicine Gastroenterology
DX: K76.0 Fatty (change of) liver, not elsewhere classified (principal)

== ENCOUNTER → 2022-08-26 | Outpatient (CLI) | payer OTHER | END | disposition home or self-care (01) | LOC: MRI 10:00 | PROVIDERS: ATTEND Student in an Organized Health Care Education/Training Program | DX: M47.27 Other spondylosis with radiculopathy, lumbosacral region (principal); M48.061 Spinal stenosis, lumbar region without neurogenic claudication; M25.78 Osteophyte, vertebrae; R29.2 Abnormal reflex ==

== ENCOUNTER → 2022-08-30 | Outpatient (CLI) | payer OTHER ==
[2022-08-30 11:22] LABS: BASO # 0.1 10*3/uL (0.0-0.1); BASO % 0.9 % (0.0-1.0); EOS # 0.5 10*3/uL (0.0-0.4); EOS % 6.1 % (1.0-4.0); HEMATOCRIT 40.8 % (37.0-47.0); LYMPH # 1.9 10*3/uL (1.3-4.4); LYMPH % 23.7 % (27.0-41.0); MEAN CELL VOLUME 90.3 fl (81.0-99.0); MEAN CORPUSCULAR HGB 29.6 pg (27.0-31.0); MEAN CORPUSCULAR HGB CONC 32.8 g/dl (33.0-37.0); MEAN PLATELET VOLUME 10.3 fl (9.6-12.3); MONO # 0.8 10*3/uL (0.1-1.0); MONO % 9.6 % (3.0-9.0); NEUT # 4.8 10*3/uL (2.3-7.9); NEUT % 59.5 % (47.0-73.0); PLATELET COUNT AUTOMATED 324 10*3/uL (130-400); RED BLOOD COUNT 4.52 10*6/uL (4.10-5.10); RED CELL DISTRI WIDTH 13.6 % (0-14.5); WHITE BLOOD COUNT 8.1 10*3/uL (4.8-10.8)
[2022-08-30 11:31] LABS: URINE CREATININE RANDOM 106.65 mg/dL
[2022-08-30 11:43] LABS: BILIRUBIN Negative (Negative); BLOOD Negative (Negative); CLARITY Clear (Clear); COLOR Yellow (Yellow); GLUCOSE Negative (Negative); KETONE Negative (Negative); LEUKO ESTERASE Trace (Negative); NITRITE Negative (Negative); PH 5.5 (4.5-8.0); UROBILINOGEN 0.2 E.U./dl (0.0-1.0)
[2022-08-30 12:04] LABS: BACTERIA 2+; EPITHELIAL CELLS 16-20; RBC 0-2 rbc/hpf (0-2)
[2022-08-30 12:10] LABS: POTASSIUM 3.9 mmol/L (3.4-5.1)
== END ==
LOC: LAB 10:36
PROVIDERS: ATTEND Internal Medicine Nephrology
DX: N18.30 Chronic kidney disease, stage 3 unspecified (principal); E55.9 Vitamin D deficiency, unspecified; N25.81 Secondary hyperparathyroidism of renal origin; R82.90 Unspecified abnormal findings in urine

== ENCOUNTER → 2022-10-14 | Outpatient (CLI) | payer OTHER | END | disposition home or self-care (01) | LOC: US 10:23 | PROVIDERS: ATTEND Nurse Practitioner Family | DX: I70.1 Atherosclerosis of renal artery (principal) ==

== ENCOUNTER → 2023-03-29 | Outpatient (CLI) | payer OTHER ==
[2023-03-29 16:29] LABS: BASO # 0.1 10*3/uL (0.0-0.1); BASO % 0.6 % (0.0-1.0); EOS # 0.2 10*3/uL (0.0-0.4); EOS % 1.8 % (1.0-4.0); HEMATOCRIT 42.6 % (37.0-47.0); LYMPH # 2.2 10*3/uL (1.3-4.4); LYMPH % 23.7 % (27.0-41.0); MEAN CELL VOLUME 89.9 fl (81.0-99.0); MEAN CORPUSCULAR HGB 28.9 pg (27.0-31.0); MEAN CORPUSCULAR HGB CONC 32.2 g/dl (33.0-37.0); MEAN PLATELET VOLUME 10.1 fl (9.6-12.3); MONO # 0.7 10*3/uL (0.1-1.0); NEUT # 6.3 10*3/uL (2.3-7.9); NEUT % 66.8 % (47.0-73.0); PLATELET COUNT AUTOMATED 438 10*3/uL (130-400); RED BLOOD COUNT 4.74 10*6/uL (4.10-5.10); RED CELL DISTRI WIDTH 13.6 % (0-14.5); WHITE BLOOD COUNT 9.4 10*3/uL (4.8-10.8)
[2023-03-29 16:51] LABS: POTASSIUM 3.8 mmol/L (3.4-5.1)
[2023-03-29 17:05] LABS: VITAMIN D, 25-HYDROXY 49.1 ng/mL (30-100)
== END | disposition home or self-care (01) ==
LOC: LAB 15:48
PROVIDERS: ATTEND Internal Medicine Nephrology
DX: N18.30 Chronic kidney disease, stage 3 unspecified (principal)

== ENCOUNTER → 2023-03-30 | Outpatient (CLI) | payer OTHER ==
[2023-03-30 15:36] LABS: BILIRUBIN Negative (Negative); BLOOD Negative (Negative); CLARITY Cloudy (Clear); COLOR Yellow (Yellow); GLUCOSE Negative (Negative); KETONE Negative (Negative); LEUKO ESTERASE 1+ (Negative); NITRITE Negative (Negative)
[2023-03-30 15:44] LABS: URINE CREATININE RANDOM 130.89 mg/dL
[2023-03-30 15:54] LABS: BACTERIA 2+
[2023-03-30 15:55] LABS: CALCIUM OXALATE CRYSTALS 1+
== END | disposition home or self-care (01) ==
LOC: LAB 15:17
PROVIDERS: ATTEND Internal Medicine Nephrology
DX: N18.30 Chronic kidney disease, stage 3 unspecified (principal)

== ENCOUNTER → 2023-07-25 | Outpatient (CLI) | payer OTHER | END | disposition home or self-care (01) | LOC: CARD 00:36 | PROVIDERS: ATTEND Physician Assistant | DX: R06.09 Other forms of dyspnea (principal) ==

== ENCOUNTER → 2023-07-31 | Outpatient (CLI) | payer OTHER ==
[~2023-07-31] MED LIST changes: +Regadenoson 0.4 MG/5 ML SYR IV ONE; +Technetium Tc 99M Tetrofosmi 0.23 MG KIT IJ SCH
== END | disposition home or self-care (01) ==
LOC: CARD 01:28
PROVIDERS: ATTEND Physician Assistant
DX: R06.09 Other forms of dyspnea (principal); R06.02 Shortness of breath; R07.9 Chest pain, unspecified

== ENCOUNTER 2023-10-24 18:02 | Emergency (ER) | payer OTHER ==
[~2023-10-24] VITALS: Ht 170.1 cm; Wt 102.1 kg
[~2023-10-24 18:02] MED LIST changes: -Regadenoson 0.4 MG/5 ML SYR IV ONE; -Technetium Tc 99M Tetrofosmi 0.23 MG KIT IJ SCH
[2023-10-24] MEDS ORDERED: methylPREDNISolone sod succ 125 MG VIAL IM ONE (19:15)
[2023-10-24] MEDS ORDERED: PREDNISONE20 M1 PO (19:24)
== END 2023-10-24 19:50 | disposition home or self-care (01) ==
LOC: ED 18:02
DX: M17.12 Unilateral primary osteoarthritis, left knee (principal); I10 Essential (primary) hypertension; Z88.8 Allergy status to other drugs, medicaments and biological substances; Z79.899 Other long term (current) drug therapy; Z96.651 Presence of right artificial knee joint; Z98.51 Tubal ligation status

== ENCOUNTER → 2023-10-30 | Outpatient (CLI) | payer OTHER ==
[~2023-10-30] MED LIST changes: +PREDNISONE20 M1 PO
[2023-10-30 08:50] LABS: BASO # 0.1 10*3/uL (0.0-0.1); BASO % 0.6 % (0.0-1.0); EOS # 0.4 10*3/uL (0.0-0.4); EOS % 2.9 % (1.0-4.0); HEMATOCRIT 47.6 % (37.0-47.0); LYMPH # 2.8 10*3/uL (1.3-4.4); LYMPH % 22.2 % (27.0-41.0); MEAN CELL VOLUME 86.7 fl (81.0-99.0); MEAN CORPUSCULAR HGB 28.6 pg (27.0-31.0); MEAN PLATELET VOLUME 10.2 fl (9.6-12.3); MONO % 7.6 % (3.0-9.0); NEUT # 8.3 10*3/uL (2.3-7.9); NEUT % 66.4 % (47.0-73.0); PLATELET COUNT AUTOMATED 394 10*3/uL (130-400); RED BLOOD COUNT 5.49 10*6/uL (4.10-5.10); RED CELL DISTRI WIDTH 14.1 % (0-14.5); WHITE BLOOD COUNT 12.5 10*3/uL (4.8-10.8)
[2023-10-30 08:52] LABS: BILIRUBIN Negative (Negative); BLOOD Negative (Negative); CLARITY Clear (Clear); COLOR Yellow (Yellow); GLUCOSE Negative (Negative); KETONE Negative (Negative); LEUKO ESTERASE 1+ (Negative); NITRITE Negative (Negative); SPECIFIC GRAVITY 1.025 (1.001-1.030)
[2023-10-30 09:14] LABS: URINE CREATININE RANDOM 123.49 mg/dL
[2023-10-30 09:47] LABS: BACTERIA 2+; EPITHELIAL CELLS 16-20; MUCOUS TRACE
[2023-10-30 10:13] LABS: VITAMIN D, 25-HYDROXY 48.2 ng/mL (30-100)
== END | disposition home or self-care (01) ==
LOC: LAB 08:28
PROVIDERS: ATTEND Internal Medicine Nephrology
DX: N18.30 Chronic kidney disease, stage 3 unspecified (principal)

== ENCOUNTER 2023-11-13 16:59 | Inpatient (IN) | payer OTHER ==
[~2023-11-13] VITALS: Ht 167.6 cm; Wt 103.0 kg
[2023-11-13 17:11] VITALS: BP 128/97
[2023-11-13 18:00] LABS: BASO # 0.1 10*3/uL (0.0-0.1); BASO % 0.4 % (0.0-1.0); EOS % 0.2 % (1.0-4.0); HEMATOCRIT 44.1 % (37.0-47.0); LYMPH # 1.3 10*3/uL (1.3-4.4); LYMPH % 11.1 % (27.0-41.0); MEAN CELL VOLUME 88.2 fl (81.0-99.0); MEAN CORPUSCULAR HGB 28.4 pg (27.0-31.0); MEAN CORPUSCULAR HGB CONC 32.2 g/dl (33.0-37.0); MEAN PLATELET VOLUME 10.2 fl (9.6-12.3); MONO # 0.2 10*3/uL (0.1-1.0); MONO % 1.6 % (3.0-9.0); NEUT # 10.5 10*3/uL (2.3-7.9); NEUT % 86.4 % (47.0-73.0); PLATELET COUNT AUTOMATED 406 10*3/uL (130-400); RED CELL DISTRI WIDTH 14.3 % (0-14.5); WHITE BLOOD COUNT 12.1 10*3/uL (4.8-10.8)
[2023-11-13 18:17] LABS: POTASSIUM 4.2 mmol/L (3.4-5.1)
[2023-11-13] MEDS ORDERED: DILTIAZEM HYDROCHLORIDE IV ONE (18:50)
[2023-11-13] MEDS ORDERED: hydrOXYzine pamoate 25 MG CAP PO ONE (18:55)
[2023-11-13 19:01] LABS: ACT PARTIAL THROMBO TIME 24.5 SECONDS (20.0-32.1)
[2023-11-13] MEDS ORDERED: Diltiazem Hydrochloride 25 MG/5 ML VIAL IV ONE (19:10)
[2023-11-13 19:45] VITALS: BP 111/79
[2023-11-13 20:01] VITALS: BP 110/66
[2023-11-13] MEDS ORDERED: Ondansetron Hydrochloride 4 MG/2 ML VIAL IV PRN (21:10)
[2023-11-13] MEDS ORDERED: ACETAMINOPHEN 650 MG SUPP R PRN (21:10)
[2023-11-13] MEDS ORDERED: Acetaminophen/Hydrocodone 5 MG/325 MG TABLET PO PRN (21:10)
[2023-11-13] MEDS ORDERED: BISACODYL 5 MG TAB PO PRN (21:10)
[2023-11-13] MEDS ORDERED: ACETAMINOPHEN 325 MG TAB PO PRN (21:10)
[2023-11-13] MEDS ORDERED: Magnesium Hydroxide 30 ML UDC PO PRN (21:10)
[2023-11-13] MEDS ORDERED: BISACODYL 10 MG SUPP R PRN (21:10)
[2023-11-13] MEDS ORDERED: FAMOTIDINE40 MG PO (21:50)
[2023-11-13] MEDS ORDERED: MELATONIN5 M1 SL (21:53)
[2023-11-13] MEDS ORDERED: ZETIA10 MG PO (21:53)
[2023-11-13] MEDS ORDERED: FENOFIBRATE MI134 MG PO (21:54)
[2023-11-13] MEDS ORDERED: AMITRIPTYLINE50 MG PO (21:54)
[2023-11-13] MEDS ORDERED: Enoxaparin Sodium 100 MG/ML SYR SC SCH (22:00)
[2023-11-13] MEDS ORDERED: Diltiazem Hydrochloride 125 ML IV SCH (22:00)
[2023-11-13 22:31] VITALS: BP 127/77
[2023-11-13] MEDS ORDERED: IOHEXOL 300 MG/ML 100 ML VIAL IV ONE (23:30)
[2023-11-13 23:44] VITALS: BP 98/42
[2023-11-14] VITALS (13 sets, daily range): BP systolic 98–133; BP diastolic 45–90
[2023-11-14] MEDS ORDERED: CALCIUM GLUC IN NACL, ISO-OSM 100 ML IV ONE (03:45)
[2023-11-14 03:51] LABS: BILIRUBIN Negative (Negative); BLOOD Negative (Negative); CLARITY Clear (Clear); COLOR Yellow (Yellow); GLUCOSE Negative (Negative); KETONE Negative (Negative); LEUKO ESTERASE Trace (Negative); NITRITE Negative (Negative); SPECIFIC GRAVITY >= 1.030 (1.001-1.030); UROBILINOGEN 0.2 E.U./dl (0.0-1.0)
[2023-11-14 03:58] LABS: BASO % 0.2 % (0.0-1.0); EOS % 0.1 % (1.0-4.0); HEMATOCRIT 44.4 % (37.0-47.0); LYMPH # 3.5 10*3/uL (1.3-4.4); LYMPH % 26.3 % (27.0-41.0); MEAN CELL VOLUME 88.3 fl (81.0-99.0); MEAN CORPUSCULAR HGB 28.6 pg (27.0-31.0); MEAN CORPUSCULAR HGB CONC 32.4 g/dl (33.0-37.0); MONO # 0.7 10*3/uL (0.1-1.0); MONO % 5.5 % (3.0-9.0); NEUT # 9.1 10*3/uL (2.3-7.9); NEUT % 67.6 % (47.0-73.0); PLATELET COUNT AUTOMATED 453 10*3/uL (130-400); RED BLOOD COUNT 5.03 10*6/uL (4.10-5.10); RED CELL DISTRI WIDTH 14.2 % (0-14.5); WHITE BLOOD COUNT 13.4 10*3/uL (4.8-10.8)
[2023-11-14] MEDS ORDERED: PIPERACILLIN SODIUM IV SCH (04:00)
[2023-11-14] MEDS ORDERED: TAZOBACTAM IV SCH (04:00)
[2023-11-14 04:06] LABS: BACTERIA 1+; MUCOUS 1+; RBC 0-2 rbc/hpf (0-2)
[2023-11-14 04:23] LABS: ALKALINE PHOSPHATASE 80 U/L (46-116); BUN 26 mg/dl (9-23); CHLORIDE 104 mmol/L (98-107); CHOLESTEROL 173 mg/dL (<200); FREE T4 1.12 ng/dl (0.89-1.76); POTASSIUM 3.8 mmol/L (3.4-5.1); SGPT/ALT 19 U/L (5-49); TOTAL PROTEIN 7.6 gm/dL (6.0-8.0); TRIGLYCERIDES 466 mg/dl (<150)
[2023-11-14] MEDS ORDERED: SODIUM CHLORIDE 0.9% 1,000 ML IV SCH (05:50)
[2023-11-14] MEDS ORDERED: EZETIMIBE 10 MG TAB PO SCH (08:00)
[2023-11-14] MEDS ORDERED: FENOFIBRATE 145 MG TAB PO SCH (10:00)
[2023-11-14] MEDS ORDERED: Enoxaparin Sodium 40 MG/0.4 ML SYR SC SCH (10:00)
[2023-11-14] MEDS ORDERED: ELIQUIS5 M1 PO (14:25)
[2023-11-14] MEDS ORDERED: FUROSEMIDE 40 MG/4 ML VIAL IV SCH (14:25)
[2023-11-14] MEDS ORDERED: ZOSYN 3.373.375 GM/1 IV (14:25)
[2023-11-14] MEDS ORDERED: Piperacillin Sodium/Tazobact 50 ML IV SCH (14:36)
[2023-11-14] MEDS ORDERED: APIXABAN 5 MG TAB PO SCH (18:00)
== END 2023-11-14 16:37 | disposition short-term general hospital (02) | DRG 872 ==
LOC: ED 16:59 → EDHOLD 20:36
PROVIDERS: Emergency Medicine; Physician Assistant Medical; Student in an Organized Health Care Education/Training Program; ADMIT Internal Medicine; ATTEND Internal Medicine
DX: A41.9 Sepsis, unspecified organism (principal); N17.9 Acute kidney failure, unspecified; E87.1 Hypo-osmolality and hyponatremia; I13.0 Hypertensive heart and chronic kidney disease with heart failure and stage 1 through stage 4 chronic kidney disease, or unspecified chronic kidney disease; Z68.45 Body mass index [BMI] 70 or greater, adult; I48.91 Unspecified atrial fibrillation; E78.5 Hyperlipidemia, unspecified; K21.9 Gastro-esophageal reflux disease without esophagitis; F41.9 Anxiety disorder, unspecified; J44.9 Chronic obstructive pulmonary disease, unspecified; K57.30 Diverticulosis of large intestine without perforation or abscess without bleeding; E66.9 Obesity, unspecified; D75.839 Thrombocytosis, unspecified; N18.9 Chronic kidney disease, unspecified; R73.9 Hyperglycemia, unspecified; R65.20 Severe sepsis without septic shock; N20.0 Calculus of kidney; I50.9 Heart failure, unspecified; G47.33 Obstructive sleep apnea (adult) (pediatric); Z88.8 Allergy status to other drugs, medicaments and biological substances; Z91.09 Other allergy status, other than to drugs and biological substances; Z90.49 Acquired absence of other specified parts of digestive tract; Z79.899 Other long term (current) drug therapy; Z79.01 Long term (current) use of anticoagulants; Z79.2 Long term (current) use of antibiotics; Z82.49 Family history of ischemic heart disease and other diseases of the circulatory system

== ENCOUNTER → 2024-02-05 | Outpatient (CLI) | payer OTHER ==
[~2024-02-05] MED LIST changes: +AMITRIPTYLINE50 MG PO; +ELIQUIS5 M1 PO; +FAMOTIDINE40 MG PO; +MELATONIN5 M1 SL; +ZETIA10 MG PO; +ZOSYN 3.373.375 GM/1 IV
[2024-02-05 13:41] LABS: HEMATOCRIT 45.5 % (37.0-47.0); MEAN CELL VOLUME 88.7 fl (81.0-99.0); MEAN CORPUSCULAR HGB 28.8 pg (27.0-31.0); MEAN CORPUSCULAR HGB CONC 32.5 g/dl (33.0-37.0); MEAN PLATELET VOLUME 10.3 fl (9.6-12.3); PLATELET COUNT AUTOMATED 466 10*3/uL (130-400); RED BLOOD COUNT 5.13 10*6/uL (4.10-5.10); RED CELL DISTRI WIDTH 13.2 % (0-14.5); WHITE BLOOD COUNT 16.7 10*3/uL (4.8-10.8)
[2024-02-05 13:45] LABS: BILIRUBIN Negative (Negative); BLOOD 3+ (Negative); CLARITY Cloudy (Clear); COLOR Orange (Yellow); GLUCOSE Negative (Negative); KETONE Negative (Negative); LEUKO ESTERASE Trace (Negative); NITRITE Negative (Negative); PH 6.5 (4.5-8.0)
[2024-02-05 13:48] LABS: MANUAL DIFF REFLEX YES
[2024-02-05 14:01] LABS: BASOPHILS 1 % (0-1); POLYCHROMASIA SLIGHT; TOTAL CELLS COUNTED 100 #CELLS
[2024-02-05 14:02] LABS: PLATELET SUFFICIENCY HIGH (NORMAL)
[2024-02-05 14:10] LABS: POTASSIUM 3.9 mmol/L (3.4-5.1); URINE CREATININE RANDOM 143.89 mg/dL
[2024-02-05 15:07] LABS: CALCIUM OXALATE CRYSTALS 1+; EPITHELIAL CELLS 21-30; RBC TNTC rbc/hpf (0-2); WBC 0-2 wbc/hpf (0-5)
[2024-02-05 15:08] LABS: BACTERIA 2+; YEAST 1+
== END | disposition home or self-care (01) ==
LOC: LAB 13:12
PROVIDERS: ATTEND Nurse Practitioner Family
DX: N18.30 Chronic kidney disease, stage 3 unspecified (principal)

== ENCOUNTER 2024-02-09 16:48 | Emergency (ER) | payer OTHER ==
[~2024-02-09] VITALS: Ht 160 cm; Wt 96.2 kg
[2024-02-09] MEDS ORDERED: SODIUM CHLORIDE 0.9% 1,000 ML IV ONE (17:15)
[2024-02-09] MEDS ORDERED: HYDROmorphONE Hydrochloride 0.5 MG/0.5 ML SYRINGE IV ONE ×2 (17:15→22:25)
[2024-02-09] MEDS ORDERED: Ondansetron Hydrochloride 4 MG/2 ML VIAL IV ONE (17:15)
[2024-02-09 17:26] LABS: BASO # 0.1 10*3/uL (0.0-0.1); BASO % 0.8 % (0.0-1.0); EOS # 0.2 10*3/uL (0.0-0.4); EOS % 1.2 % (1.0-4.0); HEMATOCRIT 43.2 % (37.0-47.0); LYMPH # 1.6 10*3/uL (1.3-4.4); LYMPH % 12.7 % (27.0-41.0); MEAN CELL VOLUME 88.7 fl (81.0-99.0); MEAN CORPUSCULAR HGB 28.1 pg (27.0-31.0); MEAN CORPUSCULAR HGB CONC 31.7 g/dl (33.0-37.0); MONO # 0.8 10*3/uL (0.1-1.0); NEUT % 79.1 % (47.0-73.0); PLATELET COUNT AUTOMATED 371 10*3/uL (130-400); RED BLOOD COUNT 4.87 10*6/uL (4.10-5.10); RED CELL DISTRI WIDTH 13.1 % (0-14.5); WHITE BLOOD COUNT 12.6 10*3/uL (4.8-10.8)
[2024-02-09 17:48] LABS: POTASSIUM 4.1 mmol/L (3.4-5.1); TOTAL PROTEIN 7.7 gm/dL (6.0-8.0)
[2024-02-09 18:27] LABS: BILIRUBIN Negative (Negative); BLOOD 3+ (Negative); CLARITY Clear (Clear); COLOR Yellow (Yellow); GLUCOSE Negative (Negative); KETONE Negative (Negative); LEUKO ESTERASE Trace (Negative); NITRITE Negative (Negative); SPECIFIC GRAVITY >= 1.030 (1.001-1.030)
[2024-02-09 18:35] LABS: BACTERIA 1+; RBC 41-50 rbc/hpf (0-2)
[2024-02-09] MEDS ORDERED: Ceftriaxone Sodium 1 GM/10 ML SYR IV ONE (18:40)
== END 2024-02-10 01:35 | disposition short-term general hospital (02) ==
LOC: ED 16:48
PROVIDERS: Nurse Practitioner Family
DX: N20.1 Calculus of ureter (principal); N39.0 Urinary tract infection, site not specified; I12.9 Hypertensive chronic kidney disease with stage 1 through stage 4 chronic kidney disease, or unspecified chronic kidney disease; N18.9 Chronic kidney disease, unspecified; I48.91 Unspecified atrial fibrillation; F41.9 Anxiety disorder, unspecified; J44.9 Chronic obstructive pulmonary disease, unspecified; K21.9 Gastro-esophageal reflux disease without esophagitis; E78.5 Hyperlipidemia, unspecified; Z88.6 Allergy status to analgesic agent; Z79.899 Other long term (current) drug therapy; Z87.442 Personal history of urinary calculi; Z90.49 Acquired absence of other specified parts of digestive tract; Z98.890 Other specified postprocedural states; Z98.51 Tubal ligation status

== ENCOUNTER 2024-03-02 12:21 | Emergency (ER) | payer OTHER ==
[~2024-03-02] VITALS: Ht 167.6 cm; Wt 96.2 kg
[2024-03-02 13:38] LABS: BASO # 0.1 10*3/uL (0.0-0.1); BASO % 1.1 % (0.0-1.0); EOS # 0.4 10*3/uL (0.0-0.4); EOS % 5.4 % (1.0-4.0); HEMATOCRIT 40.1 % (37.0-47.0); LYMPH # 2.1 10*3/uL (1.3-4.4); LYMPH % 29.3 % (27.0-41.0); MEAN CELL VOLUME 88.5 fl (81.0-99.0); MEAN CORPUSCULAR HGB 28.7 pg (27.0-31.0); MEAN CORPUSCULAR HGB CONC 32.4 g/dl (33.0-37.0); MEAN PLATELET VOLUME 10.1 fl (9.6-12.3); MONO # 0.6 10*3/uL (0.1-1.0); MONO % 8.5 % (3.0-9.0); NEUT % 55.6 % (47.0-73.0); PLATELET COUNT AUTOMATED 365 10*3/uL (130-400); RED BLOOD COUNT 4.53 10*6/uL (4.10-5.10); RED CELL DISTRI WIDTH 13.2 % (0-14.5); WHITE BLOOD COUNT 7.2 10*3/uL (4.8-10.8)
[2024-03-02 13:49] LABS: ACT PARTIAL THROMBO TIME 27.6 SECONDS (20.0-32.1)
[2024-03-02 13:50] LABS: BILIRUBIN Negative (Negative); BLOOD 3+ (Negative); CLARITY Clear (Clear); COLOR Orange (Yellow); GLUCOSE Negative (Negative); KETONE Negative (Negative); LEUKO ESTERASE 1+ (Negative); NITRITE Negative (Negative); PH 6.5 (4.5-8.0); SPECIFIC GRAVITY 1.015 (1.001-1.030); UROBILINOGEN 0.2 E.U./dl (0.0-1.0)
[2024-03-02 13:54] LABS: POTASSIUM 4.2 mmol/L (3.4-5.1); TOTAL PROTEIN 7.2 gm/dL (6.0-8.0)
[2024-03-02 14:11] LABS: RBC TNTC rbc/hpf (0-2)
[2024-03-02] MEDS ORDERED: OMNICEF300 MG PO (16:51)
== END 2024-03-02 16:56 | disposition home or self-care (01) ==
LOC: ED 12:21
PROVIDERS: Internal Medicine
DX: R31.9 Hematuria, unspecified (principal); R10.32 Left lower quadrant pain; R19.7 Diarrhea, unspecified; Z87.442 Personal history of urinary calculi; Z88.6 Allergy status to analgesic agent; Z79.899 Other long term (current) drug therapy; I10 Essential (primary) hypertension; Z98.890 Other specified postprocedural states; Z90.49 Acquired absence of other specified parts of digestive tract

== ENCOUNTER → 2024-04-05 | Outpatient (CLI) | payer OTHER ==
[~2024-04-05] MED LIST changes: +OMNICEF300 MG PO
[2024-04-11 03:06] LABS: CALCIUM, OXALATE SATURATION 6.87 (6.00-10.00); CALCIUM/CREATININE RATIO 142 (51-262); CREATININE/KG BODY WEIGHT 9.5 (8.7-20.3); CYSTINE,URINE,QUAL Neg (Negative); URIC ACID SATURATION 1.04 (<1.00); URINE CALCIUM 130 mg/24 hr (<200); URINE CITRATE 169 mg/24 hr (>550); URINE CREATININE 915 mg/24 hr (Not Applic.); URINE MAGNESIUM 43 mg/24 hr (30-120); URINE OXALATE 23 mg/24 hr (20-40); URINE PH 24 HR 5.931 (5.800-6.200); URINE POTASSIUM 37 (20-100); URINE SODIUM 158 (50-150); URINE UREA NITROGEN 6.72 g/24 hr (6.00-14.00); URINE URIC ACID 500 mg/24 hr (<750); URINE VOLUME PRESERVED 1080 mL/24 hr (500-4000)
== END | disposition home or self-care (01) ==
LOC: LAB 18:28
PROVIDERS: ATTEND Urology
DX: N20.0 Calculus of kidney (principal); E83.50 Unspecified disorder of calcium metabolism; R31.9 Hematuria, unspecified

== ENCOUNTER → 2024-04-08 | Outpatient (CLI) | payer OTHER | END | disposition home or self-care (01) | LOC: CT 11:00 | PROVIDERS: ATTEND Urology | DX: N20.0 Calculus of kidney (principal) ==

== ENCOUNTER → 2024-05-02 | Outpatient (CLI) | payer OTHER ==
[2024-05-02 15:53] LABS: CHOLESTEROL 143 mg/dL (<200); LDL CHOLESTEROL 44 mg/dL (9-159); TRIGLYCERIDES 323 mg/dl (<150)
== END | disposition home or self-care (01) ==
LOC: LAB 15:11
PROVIDERS: ATTEND Internal Medicine Cardiovascular Disease
DX: E78.2 Mixed hyperlipidemia (principal); E66.9 Obesity, unspecified; Z79.899 Other long term (current) drug therapy

== ENCOUNTER → 2024-06-04 | Outpatient (CLI) | payer OTHER | END | disposition home or self-care (01) | LOC: RAD 12:58 → MAMMO 12:58 | PROVIDERS: ATTEND Physician Assistant | DX: Z12.31 Encounter for screening mammogram for malignant neoplasm of breast (principal); N20.0 Calculus of kidney; R16.0 Hepatomegaly, not elsewhere classified; Z90.49 Acquired absence of other specified parts of digestive tract; Z98.890 Other specified postprocedural states ==

== ENCOUNTER → 2024-06-21 | Outpatient (CLI) | payer OTHER | END | disposition home or self-care (01) | LOC: US 06-17 10:30 | PROVIDERS: ATTEND Urology | DX: N28.89 Other specified disorders of kidney and ureter (principal); N20.0 Calculus of kidney ==

== ENCOUNTER → 2024-08-01 | Outpatient (CLI) | payer OTHER | END | disposition home or self-care (01) | LOC: CT 11:00 | PROVIDERS: ATTEND Urology | DX: K57.30 Diverticulosis of large intestine without perforation or abscess without bleeding (principal); K76.0 Fatty (change of) liver, not elsewhere classified; K42.9 Umbilical hernia without obstruction or gangrene; N20.0 Calculus of kidney; R10.9 Unspecified abdominal pain; Z90.49 Acquired absence of other specified parts of digestive tract ==

== ENCOUNTER → 2024-09-09 | Outpatient (CLI) | payer OTHER | END | disposition home or self-care (01) | LOC: US 09-03 13:30 | DX: N28.89 Other specified disorders of kidney and ureter (principal); N20.0 Calculus of kidney ==